=== PATIENT | female | born 1965 | race Caucasian/White ===

== ENCOUNTER → 2017-09-13 | Outpatient (CLI) | payer OTHER | LOC: CFH 15:34 | PROVIDERS: ATTEND Family Medicine | DX: M25.542 Pain in joints of left hand (principal); M25.541 Pain in joints of right hand | CPT/HCPCS: 77077 ==

== ENCOUNTER 2019-12-08 09:53 | Outpatient (CLI) | payer OTHER | END 2019-12-08 23:59 | disposition home or self-care (01) | LOC: CFH 09:53 | PROVIDERS: ATTEND Obstetrics & Gynecology | DX: Z12.31 Encounter for screening mammogram for malignant neoplasm of breast (principal) | CPT/HCPCS: 77063; 77067 ==

== ENCOUNTER → 2019-12-27 | Outpatient (CLI) | payer OTHER | END | disposition home or self-care (01) | LOC: CFH 07:14 | PROVIDERS: ATTEND Obstetrics & Gynecology | DX: N60.01 Solitary cyst of right breast (principal) | CPT/HCPCS: 76642; 77065 ==